=== PATIENT | female | born 1930 | race Caucasian/White ===

== ENCOUNTER 2018-03-12 12:52 | Emergency (ER) | payer OTHER ==
[~2018-03-12] VITALS: Ht 162.6 cm; Wt 65.8 kg
[~2018-03-12 12:52] MED LIST: ASPIR 8181 MG PO; CLONIDINE0.1 PO; LISINOPRIL5 MG PO; NOHOMEMEDICATIONS
[2018-03-12] MEDS ORDERED: LISINOPRIL20 MG PO (13:06)
[2018-03-12] MEDS ORDERED: NORVASC5 MG PO (13:07)
[2018-03-12 13:11] LABS: URINE BILIRUBIN NEGATIVE (Negative); URINE BLOOD NEGATIVE (Negative); URINE CLARITY CLEAR; URINE COLOR YELLOW; URINE GLUCOSE-RANDOM NEGATIVE (Negative); URINE KETONES NEGATIVE (Negative); URINE LEUKOCYTES-REFLEX 1+ (Negative); URINE NITRITE-REFLEX NEGATIVE (Negative); URINE PROTEIN NEGATIVE (Negative); URINE SPECIFIC GRAVITY <= 1.005 (1.005-1.030); URINE UROBILINOGEN 0.2 E.U./dl (0.2-1.0)
[2018-03-12 13:19] LABS: BACTERIA-REFLEX 1-9 Few /HPF (None Seen); CASTS None Seen /LPF (None Seen); CRYSTALS None Seen /LPF (None Seen); MUCUS 0-3 Light strn/LPF (None Seen); SQUAMOUS 4-10 Moderate /LPF (0-3); URINE RBC 0-2 Rare /HPF (0-2); URINE WBC-REFLEX 0-5 Rare /HPF (0-5)
[2018-03-12 13:22] LABS: ABSOLUTE EOSINOPHILS 0.2 thou/uL (0.0-0.7); ABSOLUTE MONOCYTES 0.7 thou/uL (0.0-1.2); ABSOLUTE NEUTROPHILS 4.3 thou/uL (1.6-8.1); BASOPHILS 0.7 %; EOSINOPHILS 2.3 %; HEMATOCRIT 42.3 % (37.0-47.0); HEMOGLOBIN 13.9 gm/dL (12.0-15.0); MCH 29.4 pg (26.0-34.0); MCHC 32.8 g/dL (28.0-37.0); MCV 89.6 fL (80.0-100.0); MONOCYTES 9.3 %; MPV 7.9 fl. (7.2-11.1); NUCLEATED RBCS 0 /100WBC; PLATELET COUNT* 250 thou/uL (150-400); POLYS 59.7 %; RBC 4.73 mil/uL (4.20-5.00); RDW-CV 14.2 % (10.5-14.5); WBC 7.1 thou/uL (4.0-11.0)
[2018-03-12 13:31] LABS: ANION GAP 8 mmol/L (7-16); BUN 19 mg/dL (7-18); CHLORIDE 103 mmol/L (98-107); CO2 29 mmol/L (21-32); CREATININE 0.9 mg/dL (0.6-1.3); GLUCOSE 68 mg/dL (70-99); POTASSIUM 3.5 mmol/L (3.5-5.1); SODIUM 140 mmol/L (136-145)
[2018-03-12 13:38] LABS: ALBUMIN 3.6 g/dL (3.4-5.0); ALKALINE PHOSPHATASE 96 U/L (46-116); LIPASE 164 U/L (73-393); SGOT 13 U/L (15-37); SGPT 16 U/L (30-65); TOTAL BILIRUBIN 0.4 mg/dL (<0.1-1.0); TOTAL PROTEIN 7.3 g/dL (6.4-8.2); TROPONIN-I LEVEL <0.06 ng/mL (<0.06)
[2018-03-12] MEDS ORDERED: AUGMENTIN 875-1 EACH PO (14:42)
[2018-03-12] MEDS ORDERED: HYDROCODONE-AP1 EAC6 PO (14:42)
[2018-03-12 14:48] VITALS: BP 179/99
--- NOTE | 2018-03-13 09:13 | EKG ---
[place] [address] ELECTROCARDIOGRAM REPORT Name: STEINBERGTAZ Room: [facility]#: [id number] Admission: 03/12/18 Attend Phys: Discharge: 03/12/18 Date of : [birth year] Report #: [id number] THIS REPORT FOR: //name// [facility] ED Test Date: 2018-03-12 Test Time: 13:09:08 Pat Name: TAZ STEINBERG Department: Room: Gender: F Fine Grade Operator: Jose Luis STARKS : 1930 Requested By: Lana Allred Order Number: [id number] MD: Adriano Heller Measurements Intervals [place] Rate: 67 P: 26 CO: 194 QRS: -20 QRSD: 83 T: 28 QT: 398 QTc: 420 Interpretive Statements Sinus rhythm Borderline left axis deviation Abnormal R-wave progression, late transition Compared to ECG 04/03/2015 09:46:57 Sinus arrhythmia no longer present Left ventricular hypertrophy no longer present Electronically Signed On 03-13-2018 9:12:56 CDT by Adriano Heller [email or web address] <ELECTRONICALLY SIGNED> By: Adriano Heller MD, FAC 03/13/18 0912 1309 [id number] Adriano Heller MD, [facility] /EPI
[2018-09-25] MEDS ORDERED: TOPROL XL25 MG PO (11:19)
[2018-09-25] MEDS ORDERED: POTASSIUM20 PO (13:26)
[2018-09-25] MEDS ORDERED: LASIX 40 MG TAB40 M2 PO (13:26)
== END 2018-03-12 14:52 | disposition home or self-care (01) ==
LOC: M.ERS 12:52
PROVIDERS: Physician Assistant
DX: N39.0 Urinary tract infection, site not specified (principal); I70.90 Unspecified atherosclerosis; J32.9 Chronic sinusitis, unspecified; I10 Essential (primary) hypertension